=== PATIENT | male | born 1990 | race Caucasian/White ===

== ENCOUNTER 2020-10-03 15:44 | Emergency (ER) | payer OTHER ==
[~2020-10-03] VITALS: Ht 170.2 cm; Wt 61.2 kg
--- NOTE | 2020-10-03 15:50 | NUR ---
Patient brought in by [id number] for ETOH
--- NOTE | 2020-10-03 16:14 | NUR ---
Contraband found in patient pocket and sent to security with patient label on it, a pipe, foil, to pocket knives, a pair of wire cutters and two lighters were turned confiscated
[2020-10-03 16:42] LABS: CARBON DIOXIDE 27 mmol/L (21-32); CHLORIDE 107 mmol/L (98-107); CREATININE 1.1 mg/dL (0.6-1.3); GLUCOSE 94 mg/dL (74-106); HEMATOCRIT 35.7 % (36.7-47.1); MEAN CORPUSCULAR HEMOGLOBIN 30.1 uug (23.8-33.4); MEAN CORPUSCULAR VOLUME 89.2 fL (73.0-96.2); PLATELET COUNT (AUTO) 265 K/uL (152-348); POTASSIUM 3.4 mmol/L (3.5-5.1); UREA NITROGEN, BLOOD 23 mg/dL (7-18)
[2020-10-03 16:43] LABS: ETHANOL < 3 MG/DL (0-0)
[2020-10-03 16:48] LABS: ALANINE AMINOTRANSFERASE 24 U/L (16-63); ALKALINE PHOSPHATASE 48 U/L (50-136); ASPARTATE AMINOTRANSFERASE 17 U/L (15-37); BILIRUBIN,DIRECT 0.1 mg/dL (0.0-0.2); BILIRUBIN,TOTAL 0.6 mg/dL (0.2-1.0); CREATINE KINASE, TOTAL 99 U/L (39-308); TOTAL PROTEIN, SERUM 6.7 g/dL (6.4-8.2)
--- NOTE | 2020-10-03 19:34 | NUR ---
Patient being taken down for CT.
[2020-10-03] MEDS ORDERED: IV NORMAL SALINE 1000 ML BAG IV ONE (23:00)
--- NOTE | 2020-10-03 23:55 | NUR ---
Patient is resting comfortably in bed with eyes closed.
[2020-10-04 00:52] LABS: *BILIRUBIN,URIN NEGATIVE (NEGATIVE); *BLOOD, URINE NEGATIVE (NEGATIVE); *CLARITY,URINE CLEAR (CLEAR); *COLOR,URINE YELLOW (YELLOW); *KETONES,URINE NEGATIVE (NEGATIVE); *UROBILINOGEN,URINE 0.2 E.U./dl (NORMAL); LEUKOCYTE ESTERASE ,URINE NEGATIVE (NEGATIVE); NITRITE, URINE NEGATIVE (NEGATIVE); PH,URINE 5.5 (5.0-8.0); UGLUCOSE NEGATIVE (NEGATIVE)
[2020-10-04 01:04] LABS: BACTERIA,URINE NONE SEEN /HPF (NONE SEEN); RBC,URINE 0-3 /HPF (0-3); SQUAMOUS EPITHELIAL CELL,UR FEW /HPF (NONE SEEN)
[2020-10-04 01:37] LABS: *AMPHETAMINE, URINE POSITIVE (NEGATIVE); *CANNABINOID, URINE POSITIVE (NEGATIVE); *COCCAINE, URINE NEGATIVE (NEGATIVE); *OPIATE, URINE POSITIVE (NEGATIVE); *PHENCYCLIDINE SCREEN,URINE NEGATIVE (NEGATIVE)
--- NOTE | 2020-10-04 01:42 | NUR ---
Patient able to use urinal, now resting comfortably in bed. No c/o pain/discomfort. Noted to be clean and dry.
--- NOTE | 2020-10-04 03:33 | NUR ---
Patient is resting comfortably in bed with eyes closed, bed in lowest position for safety precautions.
--- NOTE | 2020-10-04 06:25 | NUR ---
Patient in bed resting comfortably, eyes closed.
--- NOTE | 2020-10-04 08:32 | NUR ---
Patient given written and verbal discharge instructions. Patient verbalizes understanding of instructions. Patient is ambulatory with steady gait. Refuses offer of prison placement. Patient given list of available shelters in surrounding area.pt [facility], walks in steady gait. breakfast and clothing provided for pt. pt very appreciative of the care recieved.
[2020-10-04 08:34] VITALS: BP 132/81
== END 2020-10-04 08:38 | disposition home or self-care (01) ==
LOC: ER 15:49
DX: F19.129 Other psychoactive substance abuse with intoxication, unspecified (principal); D64.9 Anemia, unspecified; Z59.0 Homelessness
CPT/HCPCS: 36415; 70450; 85025; A4663; C1758; G0480; J7030